=== PATIENT | female | born 1950 | race Caucasian/White ===

== ENCOUNTER 2020-06-25 09:22 | Day surgery (SDC) | payer MEDICARE ==
[2020-06-23 13:51] LABS: BASOPHILS % (AUTO) 0.5 % (0.0-5.0); EOSINOPHILS % (AUTO) 2.6 % (0.0-8.0); HEMATOCRIT 35.1 % (36-48); MEAN CORPUSCULAR HEMOGLOBIN 31.1 pg (27.0-33.0); MEAN CORPUSCULAR HGB CONC 32.5 g/dL (32.0-36.0); MEAN CORPUSCULAR VOLUME 95.6 fL (79-99); MONOCYTES % (AUTO) 6.8 % (3.0-13.0); NEUTROPHILS % (AUTO) 54.6 % (40.0-77.0); PLATELET COUNT (AUTO) 328 K/uL (130-400); RED BLOOD CELL COUNT(AUTO) 3.67 MIL/uL (4.00-5.50); RED CELL DISTRIBUTION WIDTH 13.2 % (11.0-15.5); WHITE BLOOD COUNT (AUTO) 6.7 K/uL (4.8-10.8)
[2020-06-23 14:00] LABS: CREATININE 0.7 mg/dL (0.5-1.5); POTASSIUM 3.9 mmol/L (3.5-5.1)
[2020-06-23 14:22] VITALS: BP 143/78
--- NOTE | 2020-06-24 09:30 | NUR ---
RE: ABNORMAL EKG REPORTED ABNORMAL EKG TO DR [facility]. NO NEW ORDERS, MAY PROCEED WITH SURGERY.
[2020-06-25] VITALS (17 sets, daily range): BP systolic 85–150; BP diastolic 40–73
[~2020-06-25] VITALS: Ht 160 cm; Wt 70.7 kg
[~2020-06-25 09:22] MED LIST: ALEN70TA69 PO; ATOR10 PO; LACTATED RINGERS 1000ML 1,000 ML IV ONE; OMEP20CA12 PO; VALS320T16 PO
[2020-06-25] MEDS: CEFAZOLIN SODIUM 1 GM VIAL ONE ×2 (10:23→12:40)
[2020-06-25] MEDS ORDERED: LIDOCAINE PF 2% 5ML ABBOJECT ONE (12:03)
[2020-06-25] MEDS ORDERED: SUCCINYLCHOLINE CHLORIDE 20 MG/ML 10 ML VIAL ONE (12:03)
[2020-06-25] MEDS ORDERED: DEXAMETHASONE SOD PHOSPHATE 10MG/ML 1ML VIAL ONE (12:04)
[2020-06-25] MEDS ORDERED: NEOSTIGMINE 5MG/5ML SYR IV ONE (12:04)
[2020-06-25] MEDS ORDERED: MIDAZOLAM HCL 1 MG/ML 2ML VIAL ONE (12:04)
[2020-06-25] MEDS ORDERED: ROCURONIUM 10MG/1ML SYR 10 MG/ML ML ONE (12:04)
[2020-06-25] MEDS ORDERED: PROPOFOL 10 MG/ML 20ML VIAL IV ONE (12:04)
[2020-06-25] MEDS ORDERED: ONDANSETRON HCL 4 MG/2 ML VIAL ONE (12:04)
[2020-06-25] MEDS ORDERED: GLYCOPYRROLATE 1 MG/5 ML SYRINGE ONE (12:04)
[2020-06-25] MEDS ORDERED: FENTANYL CITRATE PF 50 MCG/1 ML 2ML VIAL ONE (12:05)
[2020-06-25] MEDS ORDERED: MEPERIDINE-PF 25 MG/ML SYG ONE (12:06)
[2020-06-25] MEDS ORDERED: KETOROLAC TROMETHAMINE 30MG/ML ONE (12:07)
[2020-06-25] MEDS ORDERED: ROPIVACAINE 0.5% 5MG/ML 30ML IJ ONE (12:19)
[2020-06-25] MEDS ORDERED: PHENYLEPHRINE HCL 10 MG/ML 1ML VIAL IV ONE (13:36)
== END 2020-06-25 16:25 | disposition home or self-care (01) ==
LOC: DAH 09:22
PROVIDERS: ATTEND Orthopaedic Surgery
DX: S42.332A Displaced oblique fracture of shaft of humerus, left arm, initial encounter for closed fracture (principal); E78.00 Pure hypercholesterolemia, unspecified; I10 Essential (primary) hypertension; M81.0 Age-related osteoporosis without current pathological fracture; X58.XXXA Exposure to other specified factors, initial encounter; Y93.89 Activity, other specified; Y92.89 Other specified places as the place of occurrence of the external cause; Y99.8 Other external cause status; Z20.828 Contact with and (suspected) exposure to other viral communicable diseases
CPT/HCPCS: 24516; 36415; 64415; 73060; 76942; 80048; 85025; 93005; A4215; A4221; A4222; A4223; A4565; A4663; A4930 ×2; A6207; A6223; A6260; C1713 ×3; C9803; J0330; J0690; J1100; J1885; J2001; J2175; J2250; J2370; J2405; J2704; J2710; J2795; J3010; J3490; J7120 ×2; U0003